=== PATIENT | female | born 1995 | race Caucasian/White ===

== ENCOUNTER → 2018-08-30 | Outpatient (CLI) | payer OTHER ==
--- NOTE | 2018-08-30 16:16 | NUR ---
Pt, Isabell "Laurelzachary Rodríguez presents for outpatient consult with three day old baby boy, Aldo Rodríguez, because she is unsure if baby is latching well and getting enough to eat. She is accompanied by her mother. Aldo was born by on [birth year] and weighed 7#4oz. Delivery was at [facility] and discharge was 24 hours later. At this time Aldo weighs 6# 13.6oz. Pt is coached on how to support breast and compress areola into baby's mouth with latch. Deeper latch noted, pt denies pain. She has used a nipple shield but it is not necessary at this time. Swallows noted. Pt reports 4 voids and 4 stools in the last 24 hours. Stools are still dark. Milk supply is starting to increase today. Moderate jaundice noted, extending to baby's upper chest. Also reports 10 feedings in the last 24 hours with 3 supplement feeds totaling 2.5oz in the last 24 hours. After nursing Aldo has a total weight gain of 1.6oz (44 gms). basics reviewed, as well as monitoring yellow skin tones that extend beyond to abdomen. Instructed on who to contact if yellow tones worsen over the weekend. POC: Breastfeed ad aissatou, and at least 8 times per 24 hours. Monitor voids, stools, skin tone. Follow up: Aldo has an appointment with Dr. Patrick on SundaySeptember 02. If weight or feeding concerns identified at that time, pt to contact this LC. Questions invited and answered.
== END ==
LOC: LAC 15:05 → EDBD 15:05
DX: Z39.1 Encounter for care and examination of lactating mother (principal); Z71.89 Other specified counseling